=== PATIENT | male | born 1995 ===

== ENCOUNTER 2022-12-31 14:06 | Emergency (ER) | payer BC ==
[~2022-12-31] VITALS: Ht 175.3 cm; Wt 94.3 kg
[2022-12-31] MEDS ORDERED: VITAMIN D325 GM PO (14:17)
== END 2022-12-31 17:32 | disposition home or self-care (01) ==
LOC: ER 14:06
DX: F41.9 Anxiety disorder, unspecified (principal); R07.89 Other chest pain